=== PATIENT | male | born 1965 | race Caucasian/White ===

== ENCOUNTER 2020-09-19 09:33 | Emergency (ER) | payer BC ==
[2020-09-19] MEDS ORDERED: Ketorolac 15 MG/ML SDV IVPUSH ONE (09:42)
[2020-09-19] MEDS ORDERED: Sodium Chloride 0.9% 1,000 ML IV ONE (09:42)
--- NOTE | 2020-09-19 09:47 | EDM.PDOC ---
ED HPI GENERAL MEDICAL PROBLEM - General Chief Complaint: Back Pain or Injury Stated Complaint: LWR BACK PAIN Time Seen by Provider: 09/19/20 09:35 Source of Information: Reports: Patient History Limitations: Reports: No Limitations - History of Present Illness INITIAL COMMENTS - FREE TEXT/NARRATIVE: Patient is a 55-year-old male with history of diabetes who presents today for left lower flank pain that started about an hour ago. Patient's pain radiates around to his left groin. Patient also reports some nausea. Patient denies any blood in his urine or having urinary difficulty. Patient denies any chest pain abdominal pain no other complaints. back Pain Score (Numeric/FACES): 5 - Related Data Allergies Allergy/AdvReac Type Severity Reaction Status Date / Time Penicillins Allergy Rash Verified 09/19/20 09:36 Home Meds: Home Meds metFORMIN [Glucophage] 500 mg PO BIDMEALS 09/19/20 [History] ED ROS GENERAL - Review of Systems Review Of Systems: See Below Constitutional: Reports: No Symptoms HEENT: Reports: No Symptoms Respiratory: Reports: No Symptoms Cardiovascular: Reports: No Symptoms Endocrine: Reports: No Symptoms GI/Abdominal: Reports: No Symptoms : Reports: Flank Pain Musculoskeletal: Reports: No Symptoms Skin: Reports: No Symptoms Neurological: Reports: No Symptoms Psychiatric: Reports: No Symptoms Hematologic/Lymphatic: Reports: No Symptoms Immunologic: Reports: No Symptoms ED EXAM,LOWER BACK PAIN/INJURY - Physical Exam Exam: See Below Exam Limited By: No Limitations General Appearance: Alert, WD/WN, No Apparent Distress Respiratory/Chest: No Respiratory Distress, Lungs Clear, Normal Breath Sounds Cardiovascular: Normal Peripheral Pulses, Regular Rate, Rhythm GI/Abdominal: Normal Bowel Sounds, Soft, Non-Tender (Male) Exam: No: Testicular Tenderness (L), Testicular Tenderness (R) Back Exam: Normal Inspection, Full Range of Motion. No: CVA Tenderness (L), CVA Tenderness (R) Neurological: Alert, Normal Gait, Oriented x 3 Course - Vital Signs Last Recorded V/S: Last Vital Signs Temp 97.3 F 09/19/20 10:38 Pulse 68 09/19/20 10:38 Resp 16 09/19/20 10:38 BP 152/100 H 09/19/20 10:38 Pulse Ox 95 09/19/20 10:38 - Orders/Labs/Meds Orders: Active Orders 24 hr Category Date Time Status UA W/MICROSCOPIC [URIN] Stat Lab 09/19/20 09:40 Received Labs: Laboratory Tests 09/19/20 09/19/20 09/19/20 Range/Units 09:40 09:40 09:40 WBC 5.36 (4.0-11.0) K/uL RBC 5.09 (4.50-5.90) M/uL Hgb 15.4 (13.0-17.0) g/dL Hct 45.1 (38.0-50.0) % MCV 88.6 (80.0-98.0) fL MCH 30.3 (27.0-32.0) pg MCHC 34.1 (31.0-37.0) g/dL RDW Std Deviation 41.4 (28.0-62.0) fl RDW Coeff of Shadia 13 (11.0-15.0) % Plt Count 145 L (150-400) K/uL MPV 10.00 (7.40-12.00) fL Neut % (Auto) 63.6 (48.0-80.0) % Lymph % (Auto) 26.7 (16.0-40.0) % Holmes % (Auto) 6.0 (0.0-15.0) % Eos % (Auto) 3.5 (0.0-7.0) % Baso % (Auto) 0.2 (0.0-1.5) % Neut # (Auto) 3.4 (1.4-5.7) K/uL Lymph # (Auto) 1.4 (0.6-2.4) K/uL Holmes # (Auto) 0.3 (0.0-0.8) K/uL Eos # (Auto) 0.2 (0.0-0.7) K/uL Baso # (Auto) 0.0 (0.0-0.1) K/uL Nucleated RBC % 0.0 /100WBC Nucleated RBCs # 0 K/uL Sodium 139 (136-148) mmol/L Potassium 4.3 (3.5-5.1) mmol/L Chloride 104 (98-107) mmol/L Carbon Dioxide 25.9 (21.0-32.0) mmol/L BUN 21 H (7.0-18.0) mg/dL Creatinine 1.0 (0.8-1.3) mg/dL Est Cr Clr Drug Dosing 93.77 mL/min Estimated GFR (MDRD) > 60.0 ml/min Glucose 158 H (74-106) mg/dL Calcium 8.9 (8.5-10.1) mg/dL Urine Color YELLOW Urine Appearance CLEAR Urine pH 6.0 (5.0-8.0) Ur Specific Cyclone 1.025 (1.001-1.035) Urine Protein NEGATIVE (NEGATIVE) mg/dL Urine Glucose (UA) NEGATIVE (NEGATIVE) mg/dL Urine Ketones NEGATIVE (NEGATIVE) mg/dL Urine Occult Blood LARGE H (NEGATIVE) Urine Nitrite NEGATIVE (NEGATIVE) Urine Bilirubin NEGATIVE (NEGATIVE) Urine Urobilinogen 0.2 (<2.0) EU/dL Ur Leukocyte Esterase NEGATIVE (NEGATIVE) Urine RBC 20-35 (0-2/HPF) Urine WBC 0-2 (0-5/HPF) Ur Epithelial Cells NOT SEEN (NONE-FEW) Amorphous Sediment RARE (NEGATIVE) Urine Bacteria FEW (NEGATIVE) Urine Mucus FEW (NONE-MOD) Meds: Medications Discontinued Medications Generic Name Dose Route Start Last Admin Trade Name Freq PRN Reason Stop Dose Admin Sodium Chloride 1,000 mls @ 999 mls/hr 09/19/20 09:42 09/19/20 09:51 Normal Saline IV 09/19/20 10:42 999 mls/hr .BOLUS ONE Administration Ketorolac Tromethamine 15 mg 09/19/20 09:42 09/19/20 09:51 Ketorolac 15 Mg/Ml Sdv IVPUSH 09/19/20 09:43 15 mg ONETIME ONE Administration - Re-Assessments/Exams Free Text/Narrative Re-Assessment/Exam: 09/19/20 11:00 Likely has a kidney stone versus bladder stone in the urine. Patient pain is resolved. Patient's he has no spinal tenderness no pain with straight leg raise. Patient knows about the slipped disc in his back. Patient has no urinary incontinence or leg weakness. Patient will be sent home to follow-up with urology as needed. Departure - Departure Time of Disposition: 11:00 Disposition: Home, Self-Care 01 Condition: Good Clinical Impression: Flank pain - Discharge Information *PRESCRIPTION DRUG MONITORING PROGRAM REVIEWED*: Not Applicable *COPY OF PRESCRIPTION DRUG MONITORING REPORT IN PATIENT IBJAN: Not Applicable Instructions: Flank Pain, Adult, [id number] Forms: ED Department Discharge Additional Instructions: The following information is given to patients seen in the emergency department who are being discharged to home. This information is to outline your options for follow-up care. We provide all patients seen in our emergency department with a follow-up referral. The need for follow-up, as well as the timing and circumstances, are variable depending upon the specifics of your emergency department visit. If you don't have a primary care physician on staff, we will provide you with a referral. We always advise you to contact your personal physician following an emergency department visit to inform them of the circumstance of the visit and for follow-up with them and/or the need for any referrals to a consulting specialist. The emergency department will also refer you to a specialist when appropriate. This referral assures that you have the opportunity for follow-up care with a specialist. All of these measure are taken in an effort to provide you with optimal care, which includes your follow-up. Under all circumstances we always encourage you to contact your private physician who remains a resource for coordinating your care. When calling for follow-up care, please make the office aware that this follow-up is from your recent emergency room visit. If for any reason you are refused follow-up, please contact the [facility] Emergency Department at and asked to speak to the emergency department charge nurse. Please follow up with your primary care physician. If you do not have a primary care physician, see below: [facility] - Urology [address] [place] [id number] Please follow-up with your primary care physician. We also provided you the number with urology as above to follow-up with needed if you have any other recurrent kidney stones. If you have any increased pain vomiting difficulty urinating please return to the ED. Sepsis Event Note (ED) - Evaluation Sepsis Screening Result: No Definite Risk - Focused Exam Vital Signs: Vital Signs Temp Pulse Resp BP Pulse Ox 09/19/20 10:38 97.3 F 68 16 152/100 H 95 09/19/20 09:38 97.0 F 77 18 179/121 H 91 L - My Orders Last 24 Hours: My Active Orders 09/19/20 09:40 UA W/MICROSCOPIC [URIN] Stat - Assessment/Plan Last 24 Hours: My Active Orders 09/19/20 09:40 UA W/MICROSCOPIC [URIN] Stat Plan: She is a 55-year-old male who presents today for left-sided flank pain. Patient possibly has a kidney stone. Patient has no spine tenderness and skin range of motion of back. Will obtain labs and give IV fluids and obtain CAT scan.
[2020-09-19 10:07] LABS: BLOOD UREA NITROGEN,BUN 21 mg/dL (7.0-18.0); CARBON DIOXIDE,CO2 25.9 mmol/L (21.0-32.0); CHLORIDE,CL 104 mmol/L (98-107); GLUCOSE RANDOM 158 mg/dL (74-106); POTASSIUM,K 4.3 mmol/L (3.5-5.1); SODIUM,NA 139 mmol/L (136-148)
--- NOTE | 2020-09-19 10:49 | CT ---
INDICATION: Left flank pain. Possible stone. Pain has been present for 2.5 hours. TECHNIQUE: CT of the abdomen and pelvis performed without oral IV contrast. FINDINGS: Moderate anterior subluxation of L5 on S1 due to bilateral pars defects. Marked narrowing of the L5 interspace due degenerative disc disease. Moderate subcutaneous edema in the posterior lumbar soft tissues. Trace amount of pericardial fluid. Moderate diffuse fatty infiltration of liver with focal fatty sparing adjacent to the gallbladder. No renal or ureteral calculi. Mild hazy increased density in the abdominal mesentery left greater than right with small to mildly prominent reactive appearing lymph nodes could be related to a mild panniculitis. Small periumbilical upper anterior pelvic wall hernia containing only fat. The appendix is normal. Remainder negative. IMPRESSION: 1. No acute disease in the abdomen or pelvis including no renal or ureteral calculi. 2. Small fat containing anterior pelvic wall periumbilical hernia. Other non acute findings as described above. Please note that all CT scans at this facility use dose modulation, iterative reconstruction, and/or weight-based dosing when appropriate to reduce radiation dose to as low as reasonably achievable. Dictated by Shalom Del Valle MD @ Sep 19 2020 10:42AM Signed by Dr. Shalom Del Valle @ Sep 19 2020 10:47AM
== END 2020-09-19 11:15 | disposition home or self-care (01) ==
LOC: MW.ED 09:33
DX: R10.32 Left lower quadrant pain (principal); R11.0 Nausea; E11.9 Type 2 diabetes mellitus without complications; Z88.0 Allergy status to penicillin; Z79.84 Long term (current) use of oral hypoglycemic drugs
CPT/HCPCS: 36415; 74176; 80048; 81001; 85025; 96374; 99284; J1885; J7030; 99283

== ENCOUNTER 2022-09-07 07:44 | Emergency (ER) | payer BC ==
[2022-09-07] MEDS ORDERED: Sodium Chloride 0.9% 2.5 ML Syringe FLUSH PRN (08:04)
[2022-09-07] MEDS ORDERED: Sodium Chloride 0.9% 10 ML Syringe FLUSH PRN (08:04)
[2022-09-07] MEDS ORDERED: Ibuprofen 600 MG Tab PO ONE (11:21)
[2022-09-07 11:49] LABS: CORONAVIRUS COVID-19 NAA NEGATIVE (NEGATIVE); INFLUENZA A NAA NEGATIVE (NEGATIVE); INFLUENZA B NAA NEGATIVE (NEGATIVE); RESPIRATORY SYNCYTIAL VIR NAA NEGATIVE (NEGATIVE)
== END 2022-09-07 13:32 | disposition home or self-care (01) ==
LOC: MW.ED 07:44
DX: R06.02 Shortness of breath (principal); I10 Essential (primary) hypertension; E11.9 Type 2 diabetes mellitus without complications; Z88.0 Allergy status to penicillin; Z88.7 Allergy status to serum and vaccine; Z79.84 Long term (current) use of oral hypoglycemic drugs; Z20.822 Contact with and (suspected) exposure to COVID-19
CPT/HCPCS: 0241U; 36415; 71045; 80053; 83605; 83735; 83880; 84484; 85025; 85610; 85652; 85730; 86140; 86850; 86900; 86901; 93005; 93306; 99285; J3490

== ENCOUNTER 2023-09-13 20:50 | Emergency (ER) | payer OTHER, BC ==
[2023-09-13] MEDS: Lidocaine 1% with EPINEPHrine 1:100,000 50 ML MDV INFILT STA (21:10)
[2023-09-13] MEDS: Lidocaine 1% with EPINEPHrine 1:100,000 50 ML MDV INJECT STA (21:15)
== END 2023-09-13 22:00 | disposition home or self-care (01) ==
LOC: MW.ED 20:50
DX: S51.012A Laceration without foreign body of left elbow, initial encounter (principal); M70.22 Olecranon bursitis, left elbow; E11.9 Type 2 diabetes mellitus without complications; I10 Essential (primary) hypertension; Z79.84 Long term (current) use of oral hypoglycemic drugs; Z79.899 Other long term (current) drug therapy; Z88.0 Allergy status to penicillin; Z88.7 Allergy status to serum and vaccine; W18.30XA Fall on same level, unspecified, initial encounter
CPT/HCPCS: 12001; 73080-26-LT; 73080-LT; 99283; J3490

== ENCOUNTER 2024-02-08 08:20 | Emergency (ER) | payer BC ==
[2024-02-08 08:59] LABS: BASOPHILS ABSOLUTE AUTO 0.01 K/uL (0.00-0.20); BASOPHILS PERCENT AUTO 0.1 % (0.0-1.0); EOSINOPHILS ABSOLUTE AUTO 0.14 K/uL (0.00-0.45); HEMATOCRIT 41.6 % (42.0-52.0); HEMOGLOBIN 14.6 g/dL (14.0-18.0); IMMATURE GRAN ABSOLUTE AUTO 0.03 K/uL (0.00-0.05); IMMATURE GRAN PERCENT AUTO 0.4 % (0.0-0.4); LYMPHOCYTES ABSOLUTE AUTO 1.54 K/uL (1.00-4.80); LYMPHOCYTES PERCENT AUTO 21.5 % (24.0-44.0); MEAN CORPUSCULAR HGB CONC 35.1 g/dL (32.0-36.0); MEAN CORPUSCULAR VOLUME 85.6 fL (83.0-99.0); MEAN PLATELET VOLUME 9.7 fL (9.4-12.4); MONOCYTES ABSOLUTE AUTO 0.23 K/uL (0.00-0.80); MONOCYTES PERCENT AUTO 3.2 % (0.0-8.0); NEUTROPHILS ABSOLUTE AUTO 5.21 K/uL (1.80-7.70); NEUTROPHILS PERCENT AUTO 72.8 % (41.0-71.0); PLATELET COUNT,PLT 167 K/uL (150-400); RED BLOOD CELL COUNT 4.86 M/uL (4.52-5.90); WHITE BLOOD CELL COUNT,WBC 7.16 K/uL (3.9-11.3)
[2024-02-08 09:23] LABS: A/G RATIO 0.9 (0.9-1.6); ALBUMIN 3.1 g/dL (3.4-5.0); BILIRUBIN TOTAL 0.8 mg/dL (0.2-1.0); CALCIUM 8.3 mg/dL (8.5-10.1); CARBON DIOXIDE,CO2 25.4 mmol/L (21.0-32.0); CREATININE 1.2 mg/dL (0.8-1.3); EST CRCL DRUG DOSING (CG) 75.44 mL/min; POTASSIUM,K 4.1 mmol/L (3.5-5.1); PROTEIN TOTAL,TP 6.5 g/dL (6.4-8.2)
== END 2024-02-08 09:59 | disposition home or self-care (01) ==
LOC: MW.ED 08:20
DX: U07.1 COVID-19 (principal); R60.0 Localized edema; E11.65 Type 2 diabetes mellitus with hyperglycemia; I10 Essential (primary) hypertension; Z86.16 Personal history of COVID-19; Z75.8 Other problems related to medical facilities and other health care; Z79.84 Long term (current) use of oral hypoglycemic drugs; Z79.899 Other long term (current) drug therapy; Z88.0 Allergy status to penicillin; Z88.7 Allergy status to serum and vaccine
CPT/HCPCS: 36415; 80053; 83880; 85025; 99283; 99284